=== PATIENT | male | born 1935 | race Caucasian/White ===

== ENCOUNTER 2017-03-30 13:50 | Emergency (ER) | payer MEDICARE ==
[~2017-03-30 13:50] MED LIST: AMLO10TA2 PO; ASPI-555 PO; ATOR-2 PO; CALC-1174 PO; CARB-38 PO; CARV12.511 PO; CITA-107 PO; D3 PO; DONE10TA43 PO; FURO20TA4 PO; GLIP5TAB11 PO; MEMA5TAB15 PO; METF500T6 PO; MULT-729 PO; OMEG-108 PO; PANT40TA25 PO; POTA10TA11 PO; POTA99TA25 PO; TAMS0.4C32 PO; VALS320T15 PO
[2017-03-30 14:29] LABS: BASOPHILS % (AUTO) 0.6 % (0.0-5.0); EOSINOPHILS % (AUTO) 2.8 % (0.0-8.0); HEMATOCRIT 45.8 % (42-54); LYMPHOCYTES % (AUTO) 23.3 % (21.0-51.0); MEAN CORPUSCULAR HEMOGLOBIN 29.3 pg (27.0-33.0); MEAN CORPUSCULAR HGB CONC 32.9 g/dL (32.0-36.0); MEAN CORPUSCULAR VOLUME 89.1 fL (79-99); MONOCYTES % (AUTO) 4.9 % (3.0-13.0); NEUTROPHILS % (AUTO) 68.4 % (40.0-77.0); PLATELET COUNT (AUTO) 187 K/uL (130-400); RED BLOOD CELL COUNT(AUTO) 5.15 MIL/uL (4.50-6.20); RED CELL DISTRIBUTION WIDTH 14.2 % (11.0-15.5); WHITE BLOOD COUNT (AUTO) 7.1 K/uL (4.8-10.8)
[2017-03-30 14:38] LABS: CREATININE 0.8 mg/dL (0.5-1.5); POTASSIUM 3.8 mmol/L (3.5-5.1)
[2017-03-30 14:53] LABS: ALBUMIN 3.8 g/dL (3.5-5.0); BILIRUBIN,TOTAL 0.6 mg/dL (0.2-1.0); CREATINE KINASE MB 0.5 ng/mL (0.5-3.6); TOTAL PROTEIN, SERUM 7.5 g/dL (6.0-8.3)
[2017-03-30 14:55] LABS: B-TYPE NATRIURETIC PEPTIDE 48 pg/mL (0-100)
[2017-05-13] MEDS ORDERED: CA C1TAB95 PO (16:25)
[2017-05-13] MEDS ORDERED: VITAMIN D-3 PO (16:25)
[2017-05-13] MEDS ORDERED: VIT PO (16:29)
[2017-05-13] MEDS ORDERED: [UNRECOGNIZED DRUG - OTHER] PO (16:29)
== END 2017-03-30 16:51 | disposition home or self-care (01) ==
LOC: EDH 13:50
DX: I15.9 Secondary hypertension, unspecified (principal); E11.9 Type 2 diabetes mellitus without complications; Z88.5 Allergy status to narcotic agent; Z88.8 Allergy status to other drugs, medicaments and biological substances
CPT/HCPCS: 36415; 71010; 80053; 82550; 82553; 83880; 84484; 85025; 93005

== ENCOUNTER 2017-05-13 14:04 | Observation (INO) | payer MEDICARE ==
[~2017-05-13] VITALS: Ht 182.9 cm; Wt 121.1 kg
[~2017-05-13 14:04] MED LIST changes: -AMLO10TA2 PO; -CALC-1174 PO; -CARV12.511 PO; -CITA-107 PO; -D3 PO; -DONE10TA43 PO; -GLIP5TAB11 PO; -MULT-729 PO
[2017-05-13 15:45] LABS: BASOPHILS % (AUTO) 0.7 % (0.0-5.0); EOSINOPHILS % (AUTO) 4.1 % (0.0-8.0); HEMATOCRIT 42.2 % (42-54); LYMPHOCYTES % (AUTO) 23.8 % (21.0-51.0); MEAN CORPUSCULAR HEMOGLOBIN 30.1 pg (27.0-33.0); MEAN CORPUSCULAR HGB CONC 34.3 g/dL (32.0-36.0); MEAN CORPUSCULAR VOLUME 87.9 fL (79-99); MONOCYTES % (AUTO) 6.9 % (3.0-13.0); NEUTROPHILS % (AUTO) 64.5 % (40.0-77.0); PLATELET COUNT (AUTO) 183 K/uL (130-400); RED CELL DISTRIBUTION WIDTH 15.6 % (11.0-15.5); WHITE BLOOD COUNT (AUTO) 6.3 K/uL (4.8-10.8)
[2017-05-13 15:56] VITALS: BP 166/80
[2017-05-13 15:58] LABS: CREATININE 0.8 mg/dL (0.5-1.5); POTASSIUM 4.2 mmol/L (3.5-5.1)
[2017-05-13] MEDS ORDERED: LORA10TA7 PO (16:25)
[2017-05-13] MEDS ORDERED: MULT (16:25)
[2017-05-13] MEDS ORDERED: GLIP5TAB11 PO (16:25)
[2017-05-13] MEDS ORDERED: CITA-107 PO (16:25)
[2017-05-13] MEDS ORDERED: DIPH25TA20 PO (16:25)
[2017-05-13] MEDS ORDERED: METF500T6 PO (16:25)
[2017-05-13] MEDS ORDERED: FLUTICASONE PROP NASAL (16:25)
[2017-05-13] MEDS ORDERED: CARV12.511 PO (16:25)
[2017-05-13] MEDS ORDERED: CHOL100018 PO (16:32)
[2017-05-13] MEDS ORDERED: CALC-190 PO (16:33)
[2017-05-13] MEDS ORDERED: DONE10TA43 PO (16:41)
[2017-05-14] VITALS (27 sets, daily range): BP systolic 133–154; BP diastolic 63–92
[2017-05-14] MEDS: CEFAZOLIN SODIUM 1 GM VIAL IVP SCH ×2 (06:00→08:00)
[2017-05-14] MEDS ORDERED: SODIUM CHLORIDE 0.9% 1000ML 1,000 ML IV ONE (06:04)
[2017-05-14] MEDS ORDERED: BUPIVACAINE/PF 0.25% 30ML VIAL IJ ONE (06:36)
[2017-05-14] MEDS ORDERED: DURAMORPH PF1 MG/ML 10ML AMP IV ONE (06:37)
[2017-05-14] MEDS ORDERED: EPINEPHRINE 1 MG/ML AMPULE ONE (06:37)
[2017-05-14] MEDS ORDERED: BACITRACIN 50,000 UNIT VIAL ONE (06:38)
[2017-05-14] MEDS ORDERED: THROMBIN-JMI 20000 UNIT KIT TP ONE (06:38)
[2017-05-14] MEDS ORDERED: DEXAMETHASONE SOD PHOSPHATE 10MG/ML 1ML VIAL ONE ×2 (07:06→08:41)
[2017-05-14] MEDS ORDERED: ONDANSETRON HCL 4 MG/2 ML VIAL ONE ×2 (07:06→08:41)
[2017-05-14] MEDS ORDERED: LIDOCAINE PF 2% 5ML ABBOJECT ONE (07:06)
[2017-05-14] MEDS ORDERED: GLYCOPYRROLATE 0.2 MG/ML 5 ML VIAL ONE ×2 (07:07→08:42)
[2017-05-14] MEDS ORDERED: PROPOFOL 10 MG/ML 20ML VIAL IV ONE (07:07)
[2017-05-14] MEDS ORDERED: SUCCINYLCHOLINE 200MG/10ML SYR ONE ×2 (07:07→08:41)
[2017-05-14] MEDS ORDERED: MIDAZOLAM HCL 1 MG/ML 2ML VIAL ONE ×2 (07:08→07:40)
[2017-05-14] MEDS ORDERED: FENTANYL CITRATE PF 50 MCG/1 ML 2ML VIAL ONE ×3 (07:08→09:49)
[2017-05-14] MEDS ORDERED: ARTIFICIAL TEARS 3.5 GM OINTMENT ONE (08:40)
[2017-05-14] MEDS ORDERED: LIDOCAINE HCL 4% LTA SOL 4 ML VIAL ONE (08:41)
[2017-05-14] MEDS ORDERED: ROCURONIUM BROMIDE 10MG/1ML 5ML VL ONE ×3 (08:41)
[2017-05-14] MEDS ORDERED: METOCLOPRAMIDE 10 MG/2 ML VIAL ONE (08:41)
[2017-05-14] MEDS ORDERED: NEOSTIGMINE 5MG/5ML SYR IV ONE ×2 (08:42)
[2017-05-14] MEDS ORDERED: EPHEDRINE SULFATE 50 MG/ML AMPULE ONE (10:06)
[2017-05-14] MEDS ORDERED: FUROSEMIDE 10 MG/ML 4ML VIAL ONE (10:22)
[2017-05-14] MEDS ORDERED: CEFAZOLIN SODIUM 1 GM VIAL IVP SCH (11:00)
[2017-05-14] MEDS ORDERED: PROMETHAZINE HCL 25 MG/ML 1ML AMPULE IM PRN (11:00)
[2017-05-14] MEDS ORDERED: MORPHINE SULFATE 2 MG/ML 1ML SYG IVP PRN (11:00)
[2017-05-14] MEDS ORDERED: SODIUM CHLORIDE 0.9% 10 ML VIAL IVP PRN (11:00)
[2017-05-14] MEDS ORDERED: CEFAZOLIN 2GM / 50 ML 50 ML IV SCH (11:00)
[2017-05-14] MEDS ORDERED: GLIPIZIDE 5 MG TABLET PO SCH (12:00)
[2017-05-14] MEDS ORDERED: POTASSIUM GLUCONATE 99 MG PO SCH (12:00)
[2017-05-14] MEDS ORDERED: IPRATROPIUM/ALBUTEROL SULFATE 3 ML SOLUTION IH ONE (12:01)
[2017-05-14] MEDS: DEXAMETHASONE SOD PHOSPHATE 4 MG/ML 1ML VIAL IVP SCH ×3 (13:41→23:27)
[2017-05-14] MEDS ORDERED: DEXTROSE 50%-WATER 50 ML DISP.SYRIN IV PRN (14:00)
[2017-05-14] MEDS ORDERED: GLUCAGON 1MG KIT 1 MG ML IM PRN (14:00)
[2017-05-14] MEDS: INSULIN HUMULIN R 100 UNIT/ML 3ML SQ SCH ×2 (16:30→20:54)
[2017-05-14] MEDS: CARBIDOPA-LEVODOPA 25-100 TAB PO SCH ×2 (18:24→21:00)
[2017-05-14] MEDS: LACTATED RINGERS 1000ML 1,000 ML IV SCH (18:24)
[2017-05-14] MEDS: MEMANTINE HCL 5 MG TABLET PO SCH (19:58)
[2017-05-14] MEDS: HYDROCODONE/ACETAMINOPHEN 5/325 MG TAB PO PRN ×2 (20:02→23:59)
[2017-05-14] MEDS ORDERED: ATORVASTATIN CALCIUM 40 MG TABLET PO SCH (21:00)
[2017-05-14] MEDS ORDERED: DONEPEZIL HCL 5 MG TAB PO SCH (21:00)
[2017-05-14] MEDS ORDERED: FISH OIL 1000 MG/CAP PO SCH (21:00)
[2017-05-14] MEDS ORDERED: DIPHENHYDRAMINE HCL 25 MG CAPSULE PO SCH (21:00)
[2017-05-14] MEDS ORDERED: CALCIUM 600 + VITAMIN D 400 TABLET PO SCH (21:00)
[2017-05-14] MEDS ORDERED: FLUTICASONE PROPIONATE 50MCG/SPRAY 16 GM BOTTLE EN SCH (21:00)
[2017-05-14] MEDS ORDERED: CARVEDILOL 12.5 MG TABLET PO SCH (21:00)
[2017-05-14] MEDS ORDERED: TAMSULOSIN HCL 0.4 MG CAP.ER.24H PO SCH (21:00)
[2017-05-14] MEDS ORDERED: METFORMIN HCL 500 MG TABLET PO SCH (21:00)
[2017-05-14] MEDS ORDERED: CITALOPRAM 20 MG TABLET PO SCH (21:00)
[2017-05-15] MEDS: LACTATED RINGERS 1000ML 1,000 ML IV SCH (00:17)
[2017-05-15 04:00] VITALS: BP_SYST 111; BP_SYST 168; BP_DIAS 76; BP_DIAS 87
[2017-05-15] MEDS: HYDROCODONE/ACETAMINOPHEN 5/325 MG TAB PO PRN (05:25)
[2017-05-15] MEDS: DEXAMETHASONE SOD PHOSPHATE 4 MG/ML 1ML VIAL IVP SCH (05:25)
[2017-05-15] MEDS: INSULIN HUMULIN R 100 UNIT/ML 3ML SQ SCH ×2 (06:13→11:30)
[2017-05-15 07:50] VITALS: BP 123/67
[2017-05-15] MEDS ORDERED: LORATADINE 10 MG TABLET PO SCH (09:00)
[2017-05-15] MEDS ORDERED: PANTOPRAZOLE SODIUM 40 MG TABLET.DR PO SCH (09:00)
[2017-05-15] MEDS ORDERED: ASPIRIN 81 MG EC TAB PO SCH (09:00)
[2017-05-15] MEDS ORDERED: FUROSEMIDE 20 MG TABLET PO SCH (09:00)
[2017-05-15] MEDS ORDERED: **HM** VIT D3 1000 UNITS PO SCH (09:00)
[2017-05-15] MEDS ORDERED: METFORMIN HCL 500 MG TABLET PO SCH (09:00)
[2017-05-15] MEDS: MEMANTINE HCL 5 MG TABLET PO SCH (09:12)
[2017-05-15] MEDS: CARBIDOPA-LEVODOPA 25-100 TAB PO SCH (09:15)
[2017-05-15 11:19] VITALS: BP 178/94
[2017-05-15] MEDS ORDERED: LOSARTAN 100 MG TABLET PO SCH (12:00)
[2017-05-15] MEDS ORDERED: POTASSIUM CHLORIDE 10 MEQ/TAB.SA PO SCH (17:00)
== END 2017-05-15 12:30 | disposition home or self-care (01) ==
LOC: EDSTATUS 14:45 → INTOOBSV 05-14 05:46 → DAHIP 05-14 05:46 → 4AH 05-14 11:51
PROVIDERS: ADMIT Neurological Surgery; ATTEND Neurological Surgery
DX: M48.061 Spinal stenosis, lumbar region without neurogenic claudication (principal); G20 Parkinson's disease; Z95.1 Presence of aortocoronary bypass graft; Z79.899 Other long term (current) drug therapy
CPT/HCPCS: 36415; 63047; 63048; 72020; 80048; 82948 ×6; 85025; 94640; 96372; 96374; 96376 ×2; A4218; A4344; A4510; A4600; A5113; A6219; G0378 ×32; J0171; J0330 ×2; J0690 ×2; J1100 ×5; J1815; J1940; J2001; J2250 ×2; J2274; J2405 ×2; J2704; J2710 ×2; J2765; J3010 ×3; J3490 ×7; J7030; J7120; Q0163

== ENCOUNTER 2018-01-07 08:51 | Day surgery (SDC) | payer MEDICARE ==
[~2018-01-07] VITALS: Ht 185.4 cm; Wt 123.8 kg
[~2018-01-07 08:51] MED LIST changes: +AMIL5TAB8 PO; +AMLO10TA6 PO; +CALC-190 PO; +CARV12.511 PO; +CHOL100018 PO; +CITA-107 PO; +DONE10TA43 PO; +FLUTICASONE PROP NASAL; -FURO20TA4 PO; +GLIP5TAB11 PO; +HYDR12.54 PO; +LEVO25TA54 PO; +METF-444 PO; -METF500T6 PO; +MULT; -OMEG-108 PO; -POTA10TA11 PO; -POTA99TA25 PO; +ROPI0.257 PO; +SODIUM CHLORIDE 0.9% 1000ML 1,000 ML IV ONE; -VALS320T15 PO
[2018-01-07 10:47] VITALS: BP 142/69
[2018-01-07] MEDS ORDERED: PROPOFOL 10 MG/ML 20ML VIAL IV ONE (11:33)
[2018-01-07] MEDS ORDERED: LIDOCAINE HCL-MPF 2% 5ML VIAL ONE (11:34)
[2018-01-07 12:14] VITALS: BP 89/35
[2018-01-07 12:19] VITALS: BP 123/61
[2018-01-07 12:31] VITALS: BP 125/68
[2018-02-04] MEDS ORDERED: POTA10TA11 PO (11:43)
[2018-02-04] MEDS ORDERED: LOSA100T20 PO (11:43)
[2018-02-04] MEDS ORDERED: CARV25TA PO (11:43)
[2018-02-04] MEDS ORDERED: MULT1TAB70 PO (11:43)
[2018-02-04] MEDS ORDERED: METF-444 PO (11:43)
== END 2018-01-07 13:35 | disposition home or self-care (01) ==
LOC: ENDO 08:51 → DAH 08:51 → ENDO 13:35
PROVIDERS: ATTEND Internal Medicine
DX: Z09 Encounter for follow-up examination after completed treatment for conditions other than malignant neoplasm (principal); D12.5 Benign neoplasm of sigmoid colon; Z86.010 Personal history of colon polyps; K29.50 Unspecified chronic gastritis without bleeding; K22.70 Barrett's esophagus without dysplasia; K44.9 Diaphragmatic hernia without obstruction or gangrene; K31.89 Other diseases of stomach and duodenum; K31.7 Polyp of stomach and duodenum; K22.8 Other specified diseases of esophagus; M19.90 Unspecified osteoarthritis, unspecified site; E78.5 Hyperlipidemia, unspecified; I10 Essential (primary) hypertension; E11.9 Type 2 diabetes mellitus without complications; G20 Parkinson's disease; K21.9 Gastro-esophageal reflux disease without esophagitis; G47.30 Sleep apnea, unspecified; Z79.899 Other long term (current) drug therapy; Z79.82 Long term (current) use of aspirin; Z79.84 Long term (current) use of oral hypoglycemic drugs; Z80.0 Family history of malignant neoplasm of digestive organs; Z98.890 Other specified postprocedural states; Z85.9 Personal history of malignant neoplasm, unspecified; Z95.1 Presence of aortocoronary bypass graft; Z88.8 Allergy status to other drugs, medicaments and biological substances; Z87.19 Personal history of other diseases of the digestive system
CPT/HCPCS: 43239; 45378; 82948 ×2; 88305; 88342; 93005; A4606; J2704; J3490; J7030

== ENCOUNTER 2018-01-08 06:15 | Day surgery (SDC) | payer MEDICARE ==
[~2018-01-08] VITALS: Ht 185.4 cm; Wt 128.2 kg
[2018-01-08 07:46] VITALS: BP 102/54
[2018-01-08] MEDS ORDERED: EPINEPHRINE 1 MG/ML AMPULE ONE (08:36)
[2018-01-08] MEDS ORDERED: PROPOFOL 10 MG/ML 20ML VIAL IV ONE (08:59)
[2018-01-08 09:15] VITALS: BP 88/40
[2018-01-08 09:20] VITALS: BP 103/40
[2018-01-08 09:25] VITALS: BP 135/55
[2018-02-04] MEDS ORDERED: POTA10TA11 PO (11:43)
[2018-02-04] MEDS ORDERED: METF-444 PO (11:43)
[2018-02-04] MEDS ORDERED: LOSA100T20 PO (11:43)
[2018-02-04] MEDS ORDERED: MULT1TAB70 PO (11:43)
[2018-02-04] MEDS ORDERED: CARV25TA PO (11:43)
== END 2018-01-08 09:55 | disposition home or self-care (01) ==
LOC: DAH 06:15 → ENDO 06:15
PROVIDERS: ATTEND Internal Medicine
DX: Z12.11 Encounter for screening for malignant neoplasm of colon (principal); D12.2 Benign neoplasm of ascending colon; D12.3 Benign neoplasm of transverse colon; D12.4 Benign neoplasm of descending colon; D12.5 Benign neoplasm of sigmoid colon; K57.30 Diverticulosis of large intestine without perforation or abscess without bleeding; K64.4 Residual hemorrhoidal skin tags; K64.8 Other hemorrhoids; M19.90 Unspecified osteoarthritis, unspecified site; E78.5 Hyperlipidemia, unspecified; I10 Essential (primary) hypertension; E11.9 Type 2 diabetes mellitus without complications; G20 Parkinson's disease; K21.9 Gastro-esophageal reflux disease without esophagitis; K22.70 Barrett's esophagus without dysplasia; K44.9 Diaphragmatic hernia without obstruction or gangrene; Z86.010 Personal history of colon polyps; Z79.84 Long term (current) use of oral hypoglycemic drugs; Z79.899 Other long term (current) drug therapy; Z79.82 Long term (current) use of aspirin; Z80.0 Family history of malignant neoplasm of digestive organs; Z98.890 Other specified postprocedural states; Z95.1 Presence of aortocoronary bypass graft; Z88.8 Allergy status to other drugs, medicaments and biological substances
CPT/HCPCS: 45380; 45381; 45385; 82948 ×2; 88305; A4606; A4649; J0171; J2704; J7030; 45382; 45384

== ENCOUNTER → 2018-02-04 | Outpatient (CLI) | payer MEDICARE ==
[~2018-02-04] VITALS: Ht 185.4 cm; Wt 122.4 kg
[~2018-02-04] MED LIST changes: +CARV25TA PO; +CEFTRIAXONE SODIUM 1 GM IVP SCH; +LOSA100T20 PO; +MULT1TAB70 PO; +POTA10TA11 PO; -SODIUM CHLORIDE 0.9% 1000ML 1,000 ML IV ONE
[2018-02-04 10:25] VITALS: BP 136/74
[2018-02-04 10:46] LABS: BASOPHILS % (AUTO) 0.9 % (0.0-5.0); EOSINOPHILS % (AUTO) 3.5 % (0.0-8.0); HEMATOCRIT 42.1 % (42-54); LYMPHOCYTES % (AUTO) 22.9 % (21.0-51.0); MEAN CORPUSCULAR HEMOGLOBIN 28.8 pg (27.0-33.0); MEAN CORPUSCULAR HGB CONC 33.3 g/dL (32.0-36.0); MEAN CORPUSCULAR VOLUME 86.4 fL (79-99); MONOCYTES % (AUTO) 7.3 % (3.0-13.0); NEUTROPHILS % (AUTO) 65.4 % (40.0-77.0); PLATELET COUNT (AUTO) 188 K/uL (130-400); RED BLOOD CELL COUNT(AUTO) 4.87 MIL/uL (4.50-6.20); RED CELL DISTRIBUTION WIDTH 14.8 % (11.0-15.5)
[2018-02-04 10:50] LABS: CREATININE 1.1 mg/dL (0.5-1.5); POTASSIUM 4.1 mmol/L (3.5-5.1)
[2018-02-04 11:20] LABS: APPEARANCE,URINE Clear (CLEAR); BILIRUBIN,URINE Negative (NEGATIVE); COLOR,URINE Dark Yellow (YELLOW); GLUCOSE, URINE (UA) Negative (NEGATIVE); KETONES,URINE Trace mg/dL (NEGATIVE); LEUKOCYTE ESTERASE ,URINE Small (NEGATIVE); NITRATE,URINE Negative (NEGATIVE); OCCULT BLOOD,URINE Negative (NEGATIVE); PROTEIN,URINE Trace (NEGATIVE)
[2018-02-04 11:40] LABS: BACTERIA,URINE Rare /HPF (None Seen); MUCUS,URINE Few LPF (None Seen); RBC,URINE 0-1 /HPF (0-1); SQUAMOUS EPITHELIAL CELL,UR Rare /HPF (0-2)
== END | disposition home or self-care (01) ==
LOC: DAH 10:00 → EDSTATUS 11:00
PROVIDERS: ATTEND Urology
DX: Z01.818 Encounter for other preprocedural examination (principal); R33.9 Retention of urine, unspecified
CPT/HCPCS: 36415; 80048; 81001; 85025; 87088; 93005

== ENCOUNTER 2018-03-13 07:49 | Day surgery (SDC) | payer MEDICARE ==
[2018-03-10 14:45] VITALS: BP 127/59
[2018-03-10 15:04] LABS: APPEARANCE,URINE Clear (CLEAR); BILIRUBIN,URINE Negative (NEGATIVE); COLOR,URINE Yellow (YELLOW); GLUCOSE, URINE (UA) Negative (NEGATIVE); KETONES,URINE Trace mg/dL (NEGATIVE); LEUKOCYTE ESTERASE ,URINE Small (NEGATIVE); NITRATE,URINE Negative (NEGATIVE); OCCULT BLOOD,URINE Negative (NEGATIVE); PROTEIN,URINE Negative (NEGATIVE)
[2018-03-10 15:15] LABS: BACTERIA,URINE Rare /HPF (None Seen); RBC,URINE 0-1 /HPF (0-1)
[2018-03-10 15:16] LABS: SQUAMOUS EPITHELIAL CELL,UR Rare /HPF (0-2)
[2018-03-10 15:25] LABS: POTASSIUM 4.5 mmol/L (3.5-5.1)
[2018-03-10 15:33] LABS: BASOPHILS % (AUTO) 0.7 % (0.0-5.0); HEMATOCRIT 43.4 % (42-54); LYMPHOCYTES % (AUTO) 20.2 % (21.0-51.0); MEAN CORPUSCULAR HEMOGLOBIN 27.6 pg (27.0-33.0); MEAN CORPUSCULAR HGB CONC 32.1 g/dL (32.0-36.0); MEAN CORPUSCULAR VOLUME 86.2 fL (79-99); MONOCYTES % (AUTO) 7.9 % (3.0-13.0); NEUTROPHILS % (AUTO) 68.2 % (40.0-77.0); NUCLEATED RED BLOOD CELLS 0.1 % (0.0-0.19); PLATELET COUNT (AUTO) 179 K/uL (130-400); RED BLOOD CELL COUNT(AUTO) 5.03 MIL/uL (4.50-6.20); RED CELL DISTRIBUTION WIDTH 15.2 % (11.0-15.5); WHITE BLOOD COUNT (AUTO) 6.7 K/uL (4.8-10.8)
[2018-03-13] VITALS (11 sets, daily range): BP systolic 99–132; BP diastolic 51–72
[~2018-03-13] VITALS: Ht 185.4 cm; Wt 126.8 kg
[~2018-03-13 07:49] MED LIST changes: -CARV12.511 PO; -CEFTRIAXONE SODIUM 1 GM IVP SCH; -CHOL100018 PO; +GADODIAMIDE 10 MMOL/20 ML ML IV ONE; -MULT; +VITAMIN D3 PO
[2018-03-13] MEDS ORDERED: BOTULINUM TOXIN TYPE A 100 UNITS/VIAL INJ SCH (09:00)
[2018-03-13] MEDS ORDERED: LACTATED RINGERS 1000ML 1,000 ML IV ONE (09:19)
[2018-03-13] MEDS: CEFTRIAXONE SODIUM 1 GM IVP PRN ×2 (09:26→10:40)
[2018-03-13] MEDS ORDERED: PROPOFOL 10 MG/ML 20ML VIAL IV ONE (10:41)
[2018-03-13] MEDS ORDERED: LIDOCAINE PF 2% 5ML ABBOJECT ONE (10:41)
== END 2018-03-13 12:45 | disposition home or self-care (01) ==
LOC: DAH 07:49
PROVIDERS: ATTEND Urology
DX: N39.41 Urge incontinence (principal); N40.1 Benign prostatic hyperplasia with lower urinary tract symptoms; E11.9 Type 2 diabetes mellitus without complications; I10 Essential (primary) hypertension; G47.33 Obstructive sleep apnea (adult) (pediatric); G43.909 Migraine, unspecified, not intractable, without status migrainosus; Z98.890 Other specified postprocedural states; Z95.1 Presence of aortocoronary bypass graft; F03.90 Unspecified dementia, unspecified severity, without behavioral disturbance, psychotic disturbance, mood disturbance, and anxiety
CPT/HCPCS: 36415; 52287; 80048; 81001; 82948 ×2; 85025; 87088; 93005; A4218; A4358; A4600; J0585; J0696; J2001; J2704; J7120 ×2; A9579

== ENCOUNTER 2019-01-29 08:21 | Day surgery (SDC) | payer MEDICARE ==
[2019-01-26 10:48] VITALS: BP 165/77
[2019-01-26 10:49] LABS: HEMATOCRIT 43.9 % (42-54); LYMPHOCYTES % (AUTO) 15.9 % (21.0-51.0); MEAN CORPUSCULAR HEMOGLOBIN 28.8 pg (27.0-33.0); MEAN CORPUSCULAR VOLUME 87.2 fL (79-99); MONOCYTES % (AUTO) 7.4 % (3.0-13.0); NEUTROPHILS % (AUTO) 72.7 % (40.0-77.0); NUCLEATED RED BLOOD CELLS 0.1 % (0.0-0.19); PLATELET COUNT (AUTO) 170 K/uL (130-400); RED BLOOD CELL COUNT(AUTO) 5.03 MIL/uL (4.50-6.20); RED CELL DISTRIBUTION WIDTH 15.3 % (11.0-15.5); WHITE BLOOD COUNT (AUTO) 6.9 K/uL (4.8-10.8)
[2019-01-26 10:56] LABS: CREATININE 0.9 mg/dL (0.5-1.5); POTASSIUM 4.4 mmol/L (3.5-5.1)
[2019-01-26 11:02] LABS: BILIRUBIN,URINE Negative (NEGATIVE); COLOR,URINE Yellow (YELLOW); GLUCOSE, URINE (UA) Negative (NEGATIVE); KETONES,URINE Negative (NEGATIVE); LEUKOCYTE ESTERASE ,URINE Trace (NEGATIVE); NITRATE,URINE Negative (NEGATIVE); OCCULT BLOOD,URINE Negative (NEGATIVE); PH,URINE 5.5 (5.0-8.0); PROTEIN,URINE Negative (NEGATIVE); UROBILINOGEN,URINE 0.2 mg/dL (0.2-1.0)
[2019-01-26 11:10] LABS: APPEARANCE,URINE CLEAR (CLEAR)
[2019-01-26 11:18] LABS: BACTERIA,URINE Rare /HPF (None Seen); RBC,URINE None Seen /HPF (0-1); SQUAMOUS EPITHELIAL CELL,UR Rare /HPF (0-2); WBC,URINE 0-1 /HPF (0-1)
--- NOTE | 2019-01-26 13:35 | NUR ---
ABNORMAL EKG OK PER DR. ELLSWORTH
[~2019-01-29] VITALS: Ht 188 cm; Wt 126.0 kg
[2019-01-29] VITALS (17 sets, daily range): BP systolic 113–152; BP diastolic 63–79
[~2019-01-29 08:21] MED LIST changes: -AMLO10TA6 PO; +AMLO10TA7 PO; -ATOR-2 PO; -CALC-190 PO; -FLUTICASONE PROP NASAL; -GADODIAMIDE 10 MMOL/20 ML ML IV ONE; -LOSA100T20 PO; +LOSA100T58 PO; -MULT1TAB70 PO; +OXYBUTYNIN; -ROPI0.257 PO; +ROPI0.5T5 PO; +ROSU20TA31 PO; -VITAMIN D3 PO
[2019-01-29] MEDS ORDERED: BOTULINUM TOXIN TYPE A 100 UNITS/VIAL INJ SCH (09:00)
[2019-01-29] MEDS ORDERED: SODIUM CHLORIDE 0.9% 1000ML 1,000 ML IV ONE (09:42)
[2019-01-29] MEDS: CEFTRIAXONE SODIUM 1 GM IVP SCH ×2 (09:50→10:16)
--- NOTE | 2019-01-29 09:50 | NUR ---
CONSULT: NOTIFIED KATRINA LANE OF PT ALLERGIC TO SODIUM CHLORIDE, SODIUM BICARBONATE PER MED SHEETS. PATIENT NOT AWARE OF THOSE ALLERGIES. STATED DIDN'T KNOW ANYTHING ABOUT HIM HAVING ANY ALLERGIES TO THOSE MEDICATIONS. OK TO USE SODIUM CHLORIDE FOR IV PER KATRINA LANE DROP MAN.
[2019-01-29] MEDS ORDERED: PROPOFOL 10 MG/ML 20ML VIAL IV ONE (10:00)
[2019-01-29] MEDS ORDERED: FENTANYL CITRATE PF 50 MCG/1 ML 5ML AMP IV ONE (10:00)
[2019-01-29] MEDS ORDERED: LIDOCAINE PF 2% 5ML ABBOJECT ONE (10:03)
[2019-01-29] MEDS ORDERED: DEXAMETHASONE SOD PHOSPHATE 10MG/ML 1ML VIAL ONE (10:14)
[2019-01-29] MEDS ORDERED: ONDANSETRON HCL 4 MG/2 ML VIAL ONE (10:15)
[2019-01-29] MEDS ORDERED: EPHEDRINE SULFATE 50 MG/ML AMPULE ONE (10:17)
[2019-01-29] MEDS ORDERED: GLYCOPYRROLATE 1 MG/5 ML SYRINGE ONE (10:23)
--- NOTE | 2019-01-29 11:50 | NUR ---
PATIENT ARRIVED PATIENT BROUGHT TO DAY PATIENT VIA STRETCHER BY MADHU GILLESPIE. PATIENT [id number], RESPIRATIONS UNLABORED, VITAL SIGNS STABLE. PATIENT DENIES ANY PAIN AT THIS TIME. PATIENT INSTRUCTED ON HOSPITAL ROUTINE, PATIENT VERBALIZED UNDERSTANDING. SIDERAILS UPX2, CALL FORD IN REACH, BED IN LOWEST POSITION.
--- NOTE | 2019-01-29 12:25 | NUR ---
DISCHARGE INSTRUCTIONS DISCHARGE INSTRUCTIONS EXPLAINED TO PATIENT'S SPOUSE, FOLLOW APPOINTMENT PROVIDED, SIGNS/SYMPTOMS TO MONITOR FOR AND REPORT WERE EXPLAINED WELL. PATIENT'S VERBALIZED UNDERSTANDING OF INSTRUCTIONS. ALL QUESTIONS/CONCERNS ADDRESSED.
--- NOTE | 2019-01-29 12:40 | NUR ---
PATIENT DISCHARGED PATIENT DISCHARGED FROM FACILITY ACCOMPANIED BY SPOUSE, PATIENT ABLE TO TRANSFER HIMSELF INTO PRIVATE VEHICLE UNASSISTED WITH USE OF CANE. PATIENT DRIVEN HOME IN VEHICLE BY SPOUSE.
== END 2019-01-29 12:40 | disposition home or self-care (01) ==
LOC: DAH 08:21
PROVIDERS: ATTEND Urology
DX: N39.41 Urge incontinence (principal); G20 Parkinson's disease; F02.80 Dementia in other diseases classified elsewhere, unspecified severity, without behavioral disturbance, psychotic disturbance, mood disturbance, and anxiety; I25.2 Old myocardial infarction; E11.9 Type 2 diabetes mellitus without complications; K21.9 Gastro-esophageal reflux disease without esophagitis; Z86.73 Personal history of transient ischemic attack (TIA), and cerebral infarction without residual deficits; Z95.1 Presence of aortocoronary bypass graft; Z85.819 Personal history of malignant neoplasm of unspecified site of lip, oral cavity, and pharynx; Z88.5 Allergy status to narcotic agent; Z88.8 Allergy status to other drugs, medicaments and biological substances; Z98.890 Other specified postprocedural states
CPT/HCPCS: 36415; 52287; 80048; 81001; 82948 ×2; 85025; 87088; 93005; A4215 ×2; A4221; A4222; A4223; A4358; A4600; A4663; A6260; J0585; J0696; J1100; J2001; J2405; J2704; J3010; J3490 ×2; J7030; J7120

== ENCOUNTER 2019-07-20 10:32 | Emergency (ER) | payer OTHER ==
[~2019-07-20 10:32] MED LIST changes: -CARV25TA PO; +EMPA10TA PO; -MEMA5TAB15 PO; +MEMA5TAB42 PO; -ROPI0.5T5 PO; +ROPI0.5T7 PO; -TAMS0.4C32 PO; +TICA90TA PO
[2019-07-20 11:25] LABS: BASOPHILS % (AUTO) 0.8 % (0.0-5.0); EOSINOPHILS % (AUTO) 1.8 % (0.0-8.0); HEMATOCRIT 42.9 % (42-54); LYMPHOCYTES % (AUTO) 11.9 % (21.0-51.0); MEAN CORPUSCULAR HEMOGLOBIN 28.1 pg (27.0-33.0); MEAN CORPUSCULAR HGB CONC 32.9 g/dL (32.0-36.0); MEAN CORPUSCULAR VOLUME 85.5 fL (79-99); MONOCYTES % (AUTO) 6.3 % (3.0-13.0); NEUTROPHILS % (AUTO) 78.4 % (40.0-77.0); PLATELET COUNT (AUTO) 273 K/uL (130-400); RED BLOOD CELL COUNT(AUTO) 5.02 MIL/uL (4.50-6.20); RED CELL DISTRIBUTION WIDTH 14.9 % (11.0-15.5); WHITE BLOOD COUNT (AUTO) 7.8 K/uL (4.8-10.8)
[2019-07-20 11:45] LABS: CREATININE 1.1 mg/dL (0.5-1.5); POTASSIUM 3.9 mmol/L (3.5-5.1)
[2019-07-20 11:49] LABS: ALBUMIN 3.3 g/dL (3.5-5.0); BILIRUBIN,TOTAL 0.5 mg/dL (0.2-1.0); MAGNESIUM 2.1 mg/dL (1.80-2.40); TOTAL PROTEIN, SERUM 7.7 g/dL (6.0-8.3)
[2019-07-20] MEDS ORDERED: CEFTRIAXONE SODIUM 1 GM ONE (12:31)
[2019-07-20 12:36] LABS: APPEARANCE,URINE CLOUDY (CLEAR); BILIRUBIN,URINE NEGATIVE (NEGATIVE); COLOR,URINE YELLOW (YELLOW); GLUCOSE, URINE (UA) >=1000 mg/dL (NEGATIVE); KETONES,URINE NEGATIVE (NEGATIVE); LEUKOCYTE ESTERASE ,URINE SMALL (NEGATIVE); NITRATE,URINE NEGATIVE (NEGATIVE); OCCULT BLOOD,URINE LARGE (NEGATIVE); PROTEIN,URINE TRACE mg/dL (NEGATIVE)
[2019-07-20 12:43] LABS: BACTERIA,URINE Many /HPF (None Seen); RBC,URINE 51-100 /HPF (0-1); SQUAMOUS EPITHELIAL CELL,UR Rare /HPF (0-2); WBC,URINE 26-50 /HPF (0-1)
== END 2019-07-20 13:37 | disposition home or self-care (01) ==
LOC: EDH 10:32
DX: N30.01 Acute cystitis with hematuria (principal); G20 Parkinson's disease; E11.9 Type 2 diabetes mellitus without complications; I10 Essential (primary) hypertension; Z72.0 Tobacco use; Z88.5 Allergy status to narcotic agent; Z88.8 Allergy status to other drugs, medicaments and biological substances
CPT/HCPCS: 36415; 74176; 80053; 81001; 83735; 85025; 87077; 87088; 87186; 96374; 99284; J0696

== ENCOUNTER 2019-12-28 05:59 | Day surgery (SDC) | payer OTHER ==
[~2019-12-28] VITALS: Ht 190.5 cm; Wt 117.9 kg
[2019-12-28] VITALS (10 sets, daily range): BP systolic 101–131; BP diastolic 60–91
[~2019-12-28 05:59] MED LIST changes: -ASPI-555 PO; +ASPI-556 PO; -PANT40TA25 PO; +PANT40TA54 PO
[2019-12-28 06:55] LABS: BASOPHILS % (AUTO) 0.7 % (0.0-5.0); EOSINOPHILS % (AUTO) 1.9 % (0.0-8.0); HEMATOCRIT 44.3 % (42-54); MEAN CORPUSCULAR HEMOGLOBIN 27.6 pg (27.0-33.0); MEAN CORPUSCULAR HGB CONC 31.6 g/dL (32.0-36.0); MEAN CORPUSCULAR VOLUME 87.2 fL (79-99); NEUTROPHILS % (AUTO) 72.1 % (40.0-77.0); PLATELET COUNT (AUTO) 262 K/uL (130-400); RED BLOOD CELL COUNT(AUTO) 5.08 MIL/uL (4.50-6.20); RED CELL DISTRIBUTION WIDTH 15.7 % (11.0-15.5); WHITE BLOOD COUNT (AUTO) 7.5 K/uL (4.8-10.8)
--- NOTE | 2019-12-28 07:00 | NUR ---
PREOP PT ARRIVED VIA W/C AND MADE COMFORTABLE IN BED. SPOUSE AT SIDE. PT AND SPOUSE ORIENTED TO CALL LIGHT AND ROOM. PT HAS TWO SCABS WITH BRUISING TO ARMS AND HAS REDNESS PATCHES TO INNER UPPER THIGH AREAS. WILL CONTINUE TO MONITOR PT.
[2019-12-28 07:01] LABS: CREATININE 1.2 mg/dL (0.5-1.5); POTASSIUM 3.8 mmol/L (3.5-5.1)
[2019-12-28 07:08] LABS: INR 0.96 (0.85-1.15); PARTIAL THROMBOPLASTIN TIME 27.1 SEC (26.3-35.5); PROTHROMBIN TIME 10.4 SEC (9.6-11.6)
[2019-12-28] MEDS ORDERED: MIRA50TA PO (07:35)
[2019-12-28] MEDS ORDERED: AMLO5TAB9 PO (07:45)
[2019-12-28] MEDS: SODIUM CHLORIDE 0.9% 1000ML 1,000 ML IV ONE (08:12)
[2019-12-28] MEDS ORDERED: IOHEXOL 350 MG/ML 100ML INFUS..BTL IV ONE (08:31)
[2019-12-28] MEDS ORDERED: LIDOCAINE HCL 2% 20ML ONE (08:31)
[2019-12-28] MEDS ORDERED: HEPARIN SODIUM 1000UNIT/ML 10ML VIAL ONE (08:31)
[2019-12-28] MEDS ORDERED: NITROGLYCERIN 2 MG/VIAL VIAL IV ONE (08:31)
[2019-12-28] MEDS ORDERED: SODIUM BICARB 50MEQ 50ML VIAL ONE (08:31)
[2019-12-28] MEDS ORDERED: IOHEXOL-350 50ML VIAL IV ONE (08:34)
--- NOTE | 2019-12-28 08:40 | NUR ---
report notified dr barrientos of rash to upper inner thighs and that i just collected urine for ua. will be over to jesse gonzalez.
--- NOTE | 2019-12-28 08:45 | NUR ---
[facility] dr barrientos here to see pt. will proceed with procedure. pt taken to [facility] via bed.
[2019-12-28 08:50] LABS: APPEARANCE,URINE Clear (CLEAR); BILIRUBIN,URINE Negative (NEGATIVE); COLOR,URINE Yellow (YELLOW); GLUCOSE, URINE (UA) >=1000 mg/dL (NEGATIVE); KETONES,URINE Negative (NEGATIVE); LEUKOCYTE ESTERASE ,URINE Moderate (NEGATIVE); NITRATE,URINE Positive (NEGATIVE); OCCULT BLOOD,URINE Negative (NEGATIVE); PROTEIN,URINE Negative (NEGATIVE)
[2019-12-28 08:52] LABS: BACTERIA,URINE Many /HPF (None Seen); RBC,URINE 0-1 /HPF (0-1)
[2019-12-28 08:53] LABS: SQUAMOUS EPITHELIAL CELL,UR Rare /HPF (0-2)
[2019-12-28] MEDS ORDERED: MIDAZOLAM HCL 1 MG/ML 2ML VIAL ONE (09:03)
[2019-12-28] MEDS ORDERED: FENTANYL CITRATE PF 50 MCG/1 ML 2ML VIAL ONE (09:04)
--- NOTE | 2019-12-28 10:10 | NUR ---
post op received pt and report from paris lou rn. pt in supine position in no distress. no s/s of hematoma or bleeding to rt groin. will continue to monitor pt
--- NOTE | 2019-12-28 11:00 | NUR ---
TOYA CESAR HERE TO SEE PT. PT WILL F/U AT MD OFFICE THIS SATURDAY. PT AND SPOUSE INFORMED ELIQUIS NEEDS TO BE STARTED TOMORROW. VOICED UNDERSTANDING
--- NOTE | 2019-12-28 13:10 | NUR ---
report lyn givens informed of ua results. received instructions to inform pt to follow up with primary care physician for uti. spouse and pt informed. both voiced understanding
--- NOTE | 2019-12-28 14:10 | NUR ---
discharge pt and spouse given d/c instructions. also instructed to follow up with pcp for uti. voiced understanding. pt taken out via w/c in no distress by jeffrey escobedo rn. rt groin free from hematoma or bleeding.
== END 2019-12-28 14:10 | disposition home or self-care (01) ==
LOC: DAH 05:59
PROVIDERS: ATTEND Internal Medicine Cardiovascular Disease
DX: R07.9 Chest pain, unspecified (principal); I48.91 Unspecified atrial fibrillation; I25.10 Atherosclerotic heart disease of native coronary artery without angina pectoris; Z79.01 Long term (current) use of anticoagulants; Z79.899 Other long term (current) drug therapy; Z95.1 Presence of aortocoronary bypass graft
CPT/HCPCS: 36415; 71045; 80048; 81001; 82948; 85025; 85610; 85730; 87077; 87088; 87186; 93005; 93459; A4215; A4216; A4221; A4222; A4223 ×3; A4606; A4663; C1760; C1894 ×2; J1644; J3490 ×3; J7030; Q9965; Q9967 ×2; J2250; J3010

== ENCOUNTER → 2020-01-04 | Outpatient (CLI) | payer OTHER ==
[~2020-01-04] MED LIST changes: -AMLO10TA7 PO; +AMLO5TAB9 PO; +MIRA50TA PO; -OXYBUTYNIN
== END | disposition home or self-care (01) ==
LOC: SHCH 11:46
PROVIDERS: ATTEND Internal Medicine Cardiovascular Disease
DX: I48.0 Paroxysmal atrial fibrillation (principal)
CPT/HCPCS: 93306; 93356

== ENCOUNTER 2020-02-04 07:23 | Day surgery (SDC) | payer OTHER ==
[2020-01-29 12:15] LABS: BASOPHILS % (AUTO) 0.5 % (0.0-5.0); EOSINOPHILS % (AUTO) 1.7 % (0.0-8.0); HEMATOCRIT 47.4 % (42-54); LYMPHOCYTES % (AUTO) 18.7 % (21.0-51.0); MEAN CORPUSCULAR HEMOGLOBIN 27.6 pg (27.0-33.0); MEAN CORPUSCULAR HGB CONC 31.4 g/dL (32.0-36.0); MEAN CORPUSCULAR VOLUME 87.9 fL (79-99); MONOCYTES % (AUTO) 6.2 % (3.0-13.0); NEUTROPHILS % (AUTO) 72.8 % (40.0-77.0); PLATELET COUNT (AUTO) 214 K/uL (130-400); RED BLOOD CELL COUNT(AUTO) 5.39 MIL/uL (4.50-6.20); RED CELL DISTRIBUTION WIDTH 15.6 % (11.0-15.5); WHITE BLOOD COUNT (AUTO) 7.5 K/uL (4.8-10.8)
[2020-01-29 12:52] LABS: APPEARANCE,URINE CLOUDY (CLEAR); BILIRUBIN,URINE NEGATIVE (NEGATIVE); COLOR,URINE YELLOW (YELLOW); GLUCOSE, URINE (UA) >=1000 mg/dL (NEGATIVE); KETONES,URINE 5 mg/dL (NEGATIVE); LEUKOCYTE ESTERASE ,URINE TRACE (NEGATIVE); NITRATE,URINE NEGATIVE (NEGATIVE); OCCULT BLOOD,URINE TRACE-LYSED (NEGATIVE); PROTEIN,URINE NEGATIVE (NEGATIVE); UROBILINOGEN,URINE 0.2 mg/dL (0.2-1.0)
[2020-01-29 12:54] LABS: CREATININE 1.1 mg/dL (0.5-1.5); POTASSIUM 4.9 mmol/L (3.5-5.1)
[2020-01-29 13:16] LABS: BACTERIA,URINE Many /HPF (None Seen); RBC,URINE 0-1 /HPF (0-1); WBC,URINE >100 /HPF (0-1)
[2020-01-29 13:17] LABS: SQUAMOUS EPITHELIAL CELL,UR Rare /HPF (0-2)
--- NOTE | 2020-01-29 15:40 | NUR ---
report called dr johnson office and spoke to adrienne nurse. as per md pt needs to stop asa and eliquis 2 days prior to surgery. spouse voiced understanding
[2020-02-03 08:53] VITALS: BP 148/77
[~2020-02-04] VITALS: Ht 188 cm; Wt 108.9 kg
[~2020-02-04 07:23] MED LIST changes: +AMLO-257 PO; -AMLO5TAB9 PO; +APIX5TAB PO; +BOTULINUM TOXIN TYPE A 100 UNITS/VIAL INJ SCH; +CEFTRIAXONE SODIUM 1 GM IVP SCH; +METF-446 PO; +MULT-1289 PO; -TICA90TA PO
[2020-02-04 08:00] VITALS: BP 149/74
--- NOTE | 2020-02-04 08:45 | NUR ---
Canceled Surgery D/T bacteria in urine. Dr Howard canceled surgery. Rx X1 given to pt. Verbalized understanding. Discharged to spouse. -EPortales RN
== END 2020-02-04 08:50 ==
LOC: DAH 07:23
PROVIDERS: ATTEND Urology
DX: N40.1 Benign prostatic hyperplasia with lower urinary tract symptoms (principal); N39.41 Urge incontinence; Z20.828 Contact with and (suspected) exposure to other viral communicable diseases; I10 Essential (primary) hypertension; E11.9 Type 2 diabetes mellitus without complications; Z95.1 Presence of aortocoronary bypass graft; Z98.890 Other specified postprocedural states; Z53.8 Procedure and treatment not carried out for other reasons
CPT/HCPCS: 36415; 71045; 80048; 81001; 85025; 87077; 87088; 87186; 93005; A6260; C9803; U0003; J0585

== ENCOUNTER → 2020-03-15 | Outpatient (CLI) | payer OTHER ==
[~2020-03-15] MED LIST changes: -BOTULINUM TOXIN TYPE A 100 UNITS/VIAL INJ SCH; -CEFTRIAXONE SODIUM 1 GM IVP SCH
== END | disposition home or self-care (01) ==
LOC: RAH 07:46
PROVIDERS: ATTEND Urology
DX: N28.1 Cyst of kidney, acquired (principal); I70.0 Atherosclerosis of aorta; K57.30 Diverticulosis of large intestine without perforation or abscess without bleeding; R31.0 Gross hematuria
CPT/HCPCS: 74176

== ENCOUNTER → 2020-04-15 | Outpatient (CLI) | payer OTHER ==
[~2020-04-15] MED LIST changes: +BOTULINUM TOXIN TYPE A 100 UNITS/VIAL INJ SCH; +CEFTRIAXONE SODIUM 1 GM IVP SCH
[2020-04-15 13:40] LABS: BASOPHILS % (AUTO) 0.6 % (0.0-5.0); EOSINOPHILS % (AUTO) 2.7 % (0.0-8.0); HEMATOCRIT 46.6 % (42-54); MEAN CORPUSCULAR HEMOGLOBIN 27.9 pg (27.0-33.0); MEAN CORPUSCULAR HGB CONC 31.3 g/dL (32.0-36.0); MEAN CORPUSCULAR VOLUME 89.1 fL (79-99); MONOCYTES % (AUTO) 6.2 % (3.0-13.0); NEUTROPHILS % (AUTO) 66.3 % (40.0-77.0); PLATELET COUNT (AUTO) 212 K/uL (130-400); RED BLOOD CELL COUNT(AUTO) 5.23 MIL/uL (4.50-6.20); RED CELL DISTRIBUTION WIDTH 16.2 % (11.0-15.5); WHITE BLOOD COUNT (AUTO) 6.3 K/uL (4.8-10.8)
[2020-04-15 13:49] LABS: APPEARANCE,URINE SL CLOUDY (CLEAR); BILIRUBIN,URINE NEGATIVE (NEGATIVE); COLOR,URINE YELLOW (YELLOW); GLUCOSE, URINE (UA) >=1000 mg/dL (NEGATIVE); KETONES,URINE NEGATIVE (NEGATIVE); LEUKOCYTE ESTERASE ,URINE SMALL (NEGATIVE); NITRATE,URINE NEGATIVE (NEGATIVE); OCCULT BLOOD,URINE TRACE-INTACT (NEGATIVE); PROTEIN,URINE NEGATIVE (NEGATIVE); UROBILINOGEN,URINE 0.2 mg/dL (0.2-1.0)
[2020-04-15 13:56] LABS: POTASSIUM 3.3 mmol/L (3.5-5.1)
[2020-04-15 14:00] LABS: INR 1.04 (0.85-1.15); PROTHROMBIN TIME 11.1 SEC (9.6-11.6)
[2020-04-15 14:01] LABS: PARTIAL THROMBOPLASTIN TIME 25.9 SEC (26.3-35.5)
[2020-04-15 14:35] LABS: BACTERIA,URINE Many /HPF (None Seen); MUCUS,URINE Few LPF (None Seen); SQUAMOUS EPITHELIAL CELL,UR Few /HPF (0-2)
[2020-04-16 12:44] VITALS: BP 176/95
== END ==
LOC: DAH 10:00 → EDSTATUS 11:45
PROVIDERS: ATTEND Urology
DX: Z01.818 Encounter for other preprocedural examination (principal); Z20.828 Contact with and (suspected) exposure to other viral communicable diseases; Z79.01 Long term (current) use of anticoagulants; R33.8 Other retention of urine
CPT/HCPCS: 36415; 80048; 81001; 85025; 85610; 85730; 87077; 87088; 87186; A6260; C9803; U0003

== ENCOUNTER 2020-06-05 14:30 | Emergency (ER) | payer OTHER ==
[~2020-06-05 14:30] MED LIST changes: -BOTULINUM TOXIN TYPE A 100 UNITS/VIAL INJ SCH; -CEFTRIAXONE SODIUM 1 GM IVP SCH
[2020-06-05 15:22] LABS: BASOPHILS % (AUTO) 0.4 % (0.0-5.0); EOSINOPHILS % (AUTO) 2.3 % (0.0-8.0); HEMATOCRIT 42.2 % (42-54); LYMPHOCYTES % (AUTO) 9.3 % (21.0-51.0); MEAN CORPUSCULAR HEMOGLOBIN 28.2 pg (27.0-33.0); MEAN CORPUSCULAR HGB CONC 31.8 g/dL (32.0-36.0); MEAN CORPUSCULAR VOLUME 88.7 fL (79-99); MONOCYTES % (AUTO) 7.4 % (3.0-13.0); NEUTROPHILS % (AUTO) 80.4 % (40.0-77.0); PLATELET COUNT (AUTO) 235 K/uL (130-400); RED BLOOD CELL COUNT(AUTO) 4.76 MIL/uL (4.50-6.20); RED CELL DISTRIBUTION WIDTH 14.8 % (11.0-15.5); WHITE BLOOD COUNT (AUTO) 9.3 K/uL (4.8-10.8)
[2020-06-05 15:36] LABS: CREATININE 1.4 mg/dL (0.5-1.5); INR 1.02 (0.85-1.15); POTASSIUM 3.2 mmol/L (3.5-5.1); PROTHROMBIN TIME 11.1 SEC (9.6-11.6)
[2020-06-05 15:37] LABS: PARTIAL THROMBOPLASTIN TIME 24.9 SEC (26.3-35.5)
[2020-06-05 15:41] LABS: ALBUMIN 3.8 g/dL (3.5-5.0); BILIRUBIN,TOTAL 0.6 mg/dL (0.2-1.0); TOTAL PROTEIN, SERUM 7.4 g/dL (6.0-8.3)
[2020-06-05 16:16] LABS: RAPID GROUP A STREP NEGATIVE (NEGATIVE)
[2020-06-05] MEDS ORDERED: LEVOFLOXACIN 500 MG TABLET ONE (16:23)
[2020-06-05] MEDS ORDERED: POTASSIUM BICARB/CIT AC 25 MEQ TABLET.EFF ONE (16:23)
== END 2020-06-05 16:59 | disposition home or self-care (01) ==
LOC: EDH 14:30
DX: K52.9 Noninfective gastroenteritis and colitis, unspecified (principal); Z20.822 Contact with and (suspected) exposure to COVID-19; E11.9 Type 2 diabetes mellitus without complications; I10 Essential (primary) hypertension; G20 Parkinson's disease; Z88.3 Allergy status to other anti-infective agents; Z88.5 Allergy status to narcotic agent
CPT/HCPCS: 36415; 71045; 80053; 82150; 82550; 83690; 84484; 85025; 85610; 85730; 87040; 87046; 87077; 87186; 87426; 87804 ×2; 87880; 93005; 99285; U0003

== ENCOUNTER 2020-06-06 09:48 | Emergency (ER) | payer OTHER ==
[~2020-06-06 09:48] MED LIST changes: +POTA-183 PO; -POTA10TA11 PO
[2020-06-06] MEDS ORDERED: ONDANSETRON 4MG INJ ONE (10:06)
[2020-06-06] MEDS ORDERED: ASPIRIN 81MG CHEW TAB ONE (10:06)
[2020-06-06] MEDS ORDERED: 0.9% NACL 500ML IV.SOLN 500 ML IV ONE (10:07)
[2020-06-06 10:12] LABS: BASOPHILS % (AUTO) 0.3 % (0.0-5.0); LYMPHOCYTES % (AUTO) 9.4 % (21.0-51.0); MEAN CORPUSCULAR HEMOGLOBIN 28.1 pg (27.0-33.0); MEAN CORPUSCULAR HGB CONC 31.5 g/dL (32.0-36.0); MEAN CORPUSCULAR VOLUME 89.2 fL (79-99); MONOCYTES % (AUTO) 5.7 % (3.0-13.0); PLATELET COUNT (AUTO) 198 K/uL (130-400); RED BLOOD CELL COUNT(AUTO) 4.37 MIL/uL (4.50-6.20); RED CELL DISTRIBUTION WIDTH 15.1 % (11.0-15.5); WHITE BLOOD COUNT (AUTO) 8.6 K/uL (4.8-10.8)
[2020-06-06 10:30] LABS: ALANINE AMINOTRANSFERASE < 6 U/L (12-78); ALBUMIN 3.5 g/dL (3.5-5.0); ASPARTATE AMINOTRANSFERASE 13 U/L (10-37); BILIRUBIN,TOTAL 0.6 mg/dL (0.2-1.0); CARBON DIOXIDE 28 mmol/L (21-32); CREATININE 1.2 mg/dL (0.5-1.5); GLOMERULAR FILTR. RATE CALC 62 mL/min (>60); GLUCOSE,RANDOM 145 mg/dL (70-105); INR 1.05 (0.85-1.15); PROTHROMBIN TIME 11.4 SEC (9.6-11.6); TOTAL PROTEIN, SERUM 6.8 g/dL (6.0-8.3); UREA NITROGEN, BLOOD 20 mg/dL (7-18)
[2020-06-06 10:31] LABS: PARTIAL THROMBOPLASTIN TIME 23.9 SEC (26.3-35.5)
[2020-06-06 10:34] LABS: CHLORIDE 107 mmol/L (101-111); POTASSIUM 3.1 mmol/L (3.5-5.1); SODIUM SERUM 142 mmol/L (136-145)
[2020-06-06 12:51] LABS: APPEARANCE,URINE Cloudy (CLEAR); BILIRUBIN,URINE Negative (NEGATIVE); COLOR,URINE Yellow (YELLOW); GLUCOSE, URINE (UA) >=1000 mg/dL (NEGATIVE); KETONES,URINE Trace mg/dL (NEGATIVE); LEUKOCYTE ESTERASE ,URINE Small (NEGATIVE); NITRATE,URINE Negative (NEGATIVE); OCCULT BLOOD,URINE Negative (NEGATIVE); PH,URINE 5.5 (5.0-8.0); PROTEIN,URINE Trace mg/dL (NEGATIVE); UROBILINOGEN,URINE 0.2 mg/dL (0.2-1.0)
[2020-06-06 13:00] LABS: AMPHET/METH SCREEN,URINE NEGATIVE (NEGATIVE); BARBITURATE SCREEN, URINE NEGATIVE (NEGATIVE); BENZODIAZEPINES SCREEN,URINE NEGATIVE (NEGATIVE); CANNABINOID SCREEN,URINE NEGATIVE (NEGATIVE); COCAINE SCREEN,URINE NEGATIVE (NEGATIVE); OPIATE SCREEN,URINE NEGATIVE (NEGATIVE); PHENCYCLIDINE SCREEN,URINE NEGATIVE (NEGATIVE)
[2020-06-06 13:22] LABS: BACTERIA,URINE Few /HPF (None Seen); RBC,URINE None Seen /HPF (0-1); SQUAMOUS EPITHELIAL CELL,UR 0-2 /HPF (0-2)
[2020-06-06] MEDS ORDERED: CEFTRIAXONE 1G VIAL ONE (14:25)
== END 2020-06-06 15:38 | disposition home or self-care (01) ==
LOC: EDH 09:48
DX: N39.0 Urinary tract infection, site not specified (principal); E11.9 Type 2 diabetes mellitus without complications; I10 Essential (primary) hypertension; G20 Parkinson's disease; Z91.09 Other allergy status, other than to drugs and biological substances; Z88.5 Allergy status to narcotic agent
CPT/HCPCS: 36415; 71045; 80053; 80305; 81001; 84484; 85025; 85610; 85730; 87088; 93005; 96361; 96365; 96375; 99285; J0696; J2405; J7040